=== PATIENT | male | born 1940 | race Caucasian/White ===

== ENCOUNTER 2023-10-20 09:56 | Inpatient (IN) ==
[2023-10-20 10:14] LABS: POC Calcium, Ionized 1.11 (1.16-1.32); POC Creatinine 1.1 (0.6-1.2); POC Potassium 3.9 (3.3-5.1)
[2023-10-20] MEDS ORDERED: ACETAMINOPHEN 325 MG TABLET PO ONE (11:39)
[2023-10-20] MEDS ORDERED: cefTRIAXone 1 GM VIAL IV ONE (11:39)
[2023-10-20 12:25] LABS: Hematocrit 38.6 % (40.1-51.0); Mean Cell Volume 95.3 fL (80.0-100.0); Mean Corpuscular HGB Conc 33.7 g/dL (31.0-36.0); Mean Platelet Volume 10.4 fL (8.8-12.5); Platelet Count 166 K/mcL (140-440); RBC 4.05 M/mcL (4.63-6.08); Red Cell Distribution Width 13.5 % (11.5-14.5); WBC 7.1 K/mcL (4.5-11.0)
[2023-10-20 12:57] LABS: Appearance,Urine CLOUDY (Clear); Bilirubin,Urine Negative (Negative); Color,Urine YELLOW; Culture Indicated,Urine Yes; Glucose,Urine (UA) Negative (Negative); Ketones,Urine Negative (Negative); Leukocyte Esterase,Urine 500 /uL (Negative); Mucus,Urine FEW /hpf; Nitrate,Urine POS (Negative); Protein,Urine 100 mg/dL (Negative); Specific Gravity,Urine 1.015 (1.000-1.035); Urine RBC 49 /hpf (0-3); Urine Squamous Epithelial Cell 0 /hpf (0-4); Urine WBC 177 /hpf (0-4); Urobilinogen,Urine Negative
[2023-10-20 13:00] LABS: Free T4 (Free Thyroxine) 1.28 ng/dL (0.93-1.70)
[2023-10-20 13:13] LABS: ALT/SGPT 21 U/L (<40); AST/SGOT 21 U/L (<40); Albumin 3.9 gm/dL (3.2-5.2); Alkaline Phosphatase 73 U/L (39-117); Bilirubin,Direct < 0.2 mg/dL (0-0.3); Bilirubin,Total 0.5 mg/dL (0.1-1.0); Creatine Kinase 74 U/L (24-195); Globulin 3.5 gm/dL (2.2-3.7); Thyroid Stimulating Hormone 0.79 uIU/mL (0.27-5.01); proBNP 567.3 pg/mL (<450.0)
[2023-10-20 14:37] LABS: Band Neutrophils % 1 % (0-10); Eosinophils % (Manual) 4 % (0-7); Lymphocytes % 11 % (15-49); Monocytes % (Manual) 9 % (1-12); Platelet Estimate NORMAL (Normal); RBC Morphology NORMAL (Normal); Reactive Lymphocytes 1 % (0-2); Segmented Neutrophils % 74 % (38-78)
[2023-10-20] MEDS ORDERED: ONDANSETRON 4 MG/2 ML VIAL IV PRN (15:37)
[2023-10-20] MEDS ORDERED: ACETAMINOPHEN 325 MG TABLET PO PRN (15:37)
[2023-10-20] MEDS ORDERED: DEXTROSE 31 GM ORAL.SUSP PO PRN (15:37)
[2023-10-20] MEDS ORDERED: IPRATROPIUM/ALBUTEROL 3 ML AMPUL.NEB NEB PRN (15:37)
[2023-10-20] MEDS ORDERED: traZODone HCL 50 MG TABLET PO PRN (15:37)
[2023-10-20] MEDS ORDERED: DEXTROSE 50% 50 ML VIAL IV PRN (15:37)
[2023-10-20] MEDS: 0.9 % SODIUM CHLORIDE 1,000 ML IV SCH (16:18)
[2023-10-20] MEDS: INSULIN LISPRO 1 UNIT/0.01 ML UNIT SQ SCH ×2 (17:16→20:52)
[2023-10-20] MEDS: SENNOSIDES 1 TABLET PO SCH (20:51)
[2023-10-20] MEDS: DOCUSATE SODIUM 100 MG CAPSULE PO SCH (20:52)
[2023-10-20] MEDS: INSULIN GLARGINE, HUMAN 1 UNIT/0.01 ML SQ SCH (20:52)
[2023-10-20] MEDS: 0.9 % SODIUM CHLORIDE 10 ML SYRINGE IV SCH (20:54)
[2023-10-20] MEDS: NIRMATRELVIR/RITONAVIR 1 EACH BOX PO SCH (20:57)
[2023-10-20] MEDS ORDERED: CITRIC AC GLUCONOLACT MAG CARB IRRIGATION SCH (21:00)
[2023-10-20] MEDS: CLOTRIMAZOLE CRM 1% 1 DOSE TUBE TOPICAL SCH (21:05)
[2023-10-20] MEDS: busPIRone 15 MG TABLET PO SCH (21:05)
[2023-10-21] MEDS: 0.9 % SODIUM CHLORIDE 1,000 ML IV SCH (02:43)
[2023-10-21] MEDS: 0.9 % SODIUM CHLORIDE 10 ML SYRINGE IV SCH ×3 (04:08→21:35)
[2023-10-21 06:19] LABS: Basophils # (Auto) 0.02 K/mcL (0.00-0.30); Basophils % (Auto) 0.4 % (0.0-2.0); Eosinophils # (Auto) 0 K/mcL (0.00-0.70); Eosinophils % (Auto) 0 % (0.0-7.0); Hematocrit 36.6 % (40.1-51.0); Hemoglobin 11.9 g/dL (13.7-17.5); Lymphocytes # (Auto) 0.78 K/mcL (1.50-4.80); Lymphocytes % (Auto) 15.2 % (15.5-49.0); Mean Cell Volume 97.9 fL (80.0-100.0); Mean Corpuscular HGB Conc 32.5 g/dL (31.0-36.0); Mean Platelet Volume 10.2 fL (8.8-12.5); Monocytes # (Auto) 0.66 K/mcL (0.10-0.90); Monocytes % (Auto) 12.8 % (1.0-12.0); Neutrophils % (Auto) 71.4 % (38.0-78.0); Platelet Count 145 K/mcL (140-440); RBC 3.74 M/mcL (4.63-6.08); Red Cell Distribution Width 13.6 % (11.5-14.5); WBC 5.1 K/mcL (4.5-11.0)
[2023-10-21 06:35] LABS: ALT/SGPT 13 U/L (<40); AST/SGOT 20 U/L (<40); Albumin 3.2 gm/dL (3.2-5.2); Alkaline Phosphatase 59 U/L (39-117); Bilirubin,Total 0.3 mg/dL (0.1-1.0); Blood Urea Nitrogen 24 mg/dL (8-23); Calcium 8.6 mg/dL (8.6-10.4); Carbon Dioxide 21 mmol/L (22-30); Chloride 103 mmol/L (96-108); Globulin 3.1 gm/dL (2.2-3.7); Glomerular Filtration Rate 62; Glucose 147 mg/dL (70-105)
[2023-10-21] MEDS: INSULIN LISPRO 1 UNIT/0.01 ML UNIT SQ SCH ×4 (09:16→21:26)
[2023-10-21] MEDS: DOCUSATE SODIUM 100 MG CAPSULE PO SCH ×2 (09:17→20:59)
[2023-10-21] MEDS: ASPIRIN 81 MG TAB.CHEW PO SCH (09:17)
[2023-10-21] MEDS: busPIRone 15 MG TABLET PO SCH ×2 (09:17→20:59)
[2023-10-21] MEDS: ENOXAPARIN 40 MG/0.4 ML SYRINGE SQ SCH (09:19)
[2023-10-21] MEDS: CLOTRIMAZOLE CRM 1% 1 DOSE TUBE TOPICAL SCH ×2 (09:19→20:59)
[2023-10-21] MEDS: cefTRIAXone 1 GM VIAL IV SCH (09:20)
[2023-10-21] MEDS: NIRMATRELVIR/RITONAVIR 1 EACH BOX PO SCH ×2 (09:45→20:58)
[2023-10-21] MEDS: SENNOSIDES 1 TABLET PO SCH (20:59)
[2023-10-21] MEDS: INSULIN GLARGINE, HUMAN 1 UNIT/0.01 ML SQ SCH (21:26)
[2023-10-22] MEDS: 0.9 % SODIUM CHLORIDE 10 ML SYRINGE IV SCH ×3 (05:49→22:55)
[2023-10-22 06:22] LABS: Basophils # (Auto) 0.01 K/mcL (0.00-0.30); Basophils % (Auto) 0.3 % (0.0-2.0); Eosinophils # (Auto) 0 K/mcL (0.00-0.70); Eosinophils % (Auto) 0 % (0.0-7.0); Hemoglobin 12.4 g/dL (13.7-17.5); Lymphocytes # (Auto) 1.04 K/mcL (1.50-4.80); Lymphocytes % (Auto) 26.2 % (15.5-49.0); Mean Cell Volume 96.4 fL (80.0-100.0); Mean Corpuscular HGB Conc 32.6 g/dL (31.0-36.0); Mean Platelet Volume 9.9 fL (8.8-12.5); Monocytes # (Auto) 0.51 K/mcL (0.10-0.90); Monocytes % (Auto) 12.8 % (1.0-12.0); Neutrophils % (Auto) 60.2 % (38.0-78.0); Platelet Count 143 K/mcL (140-440); RBC 3.94 M/mcL (4.63-6.08); Red Cell Distribution Width 13.6 % (11.5-14.5)
[2023-10-22 06:47] LABS: ALT/SGPT 15 U/L (<40); AST/SGOT 22 U/L (<40); Albumin 3.1 gm/dL (3.2-5.2); Alkaline Phosphatase 57 U/L (39-117); Bilirubin,Total 0.3 mg/dL (0.1-1.0); Blood Urea Nitrogen 26 mg/dL (8-23); Calcium 8.6 mg/dL (8.6-10.4); Carbon Dioxide 21 mmol/L (22-30); Chloride 109 mmol/L (96-108); Globulin 3.1 gm/dL (2.2-3.7); Glomerular Filtration Rate 62; Glucose 178 mg/dL (70-105)
[2023-10-22] MEDS: cefTRIAXone 1 GM VIAL IV SCH (09:35)
[2023-10-22] MEDS: INSULIN LISPRO 1 UNIT/0.01 ML UNIT SQ SCH ×4 (09:35→22:51)
[2023-10-22] MEDS: DOCUSATE SODIUM 100 MG CAPSULE PO SCH ×2 (09:36→22:53)
[2023-10-22] MEDS: ASPIRIN 81 MG TAB.CHEW PO SCH (09:36)
[2023-10-22] MEDS: ENOXAPARIN 40 MG/0.4 ML SYRINGE SQ SCH (09:36)
[2023-10-22] MEDS: CLOTRIMAZOLE CRM 1% 1 DOSE TUBE TOPICAL SCH ×2 (09:37→22:54)
[2023-10-22] MEDS: busPIRone 15 MG TABLET PO SCH ×2 (09:37→22:54)
[2023-10-22] MEDS: NIRMATRELVIR/RITONAVIR 1 EACH BOX PO SCH ×2 (09:44→22:16)
[2023-10-22] MEDS ORDERED: hydrALAZINE 20 MG/ML VIAL IV PRN (13:59)
[2023-10-22] MEDS: LOSARTAN 50 MG TABLET PO SCH (15:18)
[2023-10-22] MEDS: INSULIN GLARGINE, HUMAN 1 UNIT/0.01 ML SQ SCH (22:50)
[2023-10-22] MEDS: SENNOSIDES 1 TABLET PO SCH (22:53)
[2023-10-22] MEDS: amLODIPine 5 MG TABLET PO SCH (22:54)
[2023-10-22] MEDS: METOPROLOL SUCCINATE 50 MG TAB.XL.24H PO SCH (22:54)
[2023-10-22] MEDS: CIPROFLOXACIN 400 MG/200 ML BAG IV SCH (23:16)
[2023-10-23] MEDS: CIPROFLOXACIN 400 MG/200 ML BAG IV SCH ×3 (00:06→22:08)
[2023-10-23 06:14] LABS: Basophils # (Auto) 0.01 K/mcL (0.00-0.30); Basophils % (Auto) 0.2 % (0.0-2.0); Eosinophils # (Auto) 0.01 K/mcL (0.00-0.70); Eosinophils % (Auto) 0.2 % (0.0-7.0); Hematocrit 41.1 % (40.1-51.0); Hemoglobin 13.5 g/dL (13.7-17.5); Lymphocytes # (Auto) 1.47 K/mcL (1.50-4.80); Lymphocytes % (Auto) 36.2 % (15.5-49.0); Mean Cell Volume 96.7 fL (80.0-100.0); Mean Corpuscular HGB Conc 32.8 g/dL (31.0-36.0); Mean Platelet Volume 10.1 fL (8.8-12.5); Monocytes # (Auto) 0.32 K/mcL (0.10-0.90); Monocytes % (Auto) 7.9 % (1.0-12.0); Neutrophils % (Auto) 55.3 % (38.0-78.0); Platelet Count 160 K/mcL (140-440); RBC 4.25 M/mcL (4.63-6.08); Red Cell Distribution Width 13.9 % (11.5-14.5); WBC 4.1 K/mcL (4.5-11.0)
[2023-10-23 06:50] LABS: ALT/SGPT 15 U/L (<40); AST/SGOT 24 U/L (<40); Albumin 3.3 gm/dL (3.2-5.2); Alkaline Phosphatase 60 U/L (39-117); Bilirubin,Direct < 0.2 mg/dL (0-0.3); Bilirubin,Total 0.3 mg/dL (0.1-1.0); Blood Urea Nitrogen 23 mg/dL (8-23); Calcium 8.9 mg/dL (8.6-10.4); Carbon Dioxide 20 mmol/L (22-30); Chloride 107 mmol/L (96-108); Globulin 3.3 gm/dL (2.2-3.7); Glomerular Filtration Rate 62; Glucose 169 mg/dL (70-105); Lactate Dehydrogenase 205 U/L (135-225); Phosphorous 3.4 mg/dL (2.5-4.5); Triglycerides 165 mg/dL (<150); Uric Acid 7.3 mg/dL (2.5-8.0)
[2023-10-23] MEDS: INSULIN LISPRO 1 UNIT/0.01 ML UNIT SQ SCH ×4 (07:47→22:08)
[2023-10-23] MEDS: LOSARTAN 50 MG TABLET PO SCH (08:39)
[2023-10-23] MEDS: ASPIRIN 81 MG TAB.CHEW PO SCH (08:39)
[2023-10-23] MEDS: DOCUSATE SODIUM 100 MG CAPSULE PO SCH ×2 (08:39→22:05)
[2023-10-23] MEDS: ENOXAPARIN 40 MG/0.4 ML SYRINGE SQ SCH (08:39)
[2023-10-23] MEDS: 0.9 % SODIUM CHLORIDE 10 ML SYRINGE IV SCH ×3 (08:39→22:09)
[2023-10-23] MEDS: busPIRone 15 MG TABLET PO SCH ×2 (08:39→22:07)
[2023-10-23] MEDS: CLOTRIMAZOLE CRM 1% 1 DOSE TUBE TOPICAL SCH ×2 (08:40→22:09)
[2023-10-23] MEDS: NIRMATRELVIR/RITONAVIR 1 EACH BOX PO SCH ×2 (08:41→22:08)
[2023-10-23] MEDS: amLODIPine 5 MG TABLET PO SCH (22:06)
[2023-10-23] MEDS: SENNOSIDES 1 TABLET PO SCH (22:06)
[2023-10-23] MEDS: METOPROLOL SUCCINATE 50 MG TAB.XL.24H PO SCH (22:07)
[2023-10-23] MEDS: INSULIN GLARGINE, HUMAN 1 UNIT/0.01 ML SQ SCH (22:08)
[2023-10-24] MEDS: 0.9 % SODIUM CHLORIDE 10 ML SYRINGE IV SCH (07:53)
[2023-10-24] MEDS: INSULIN LISPRO 1 UNIT/0.01 ML UNIT SQ SCH ×2 (08:01→11:58)
[2023-10-24] MEDS: CIPROFLOXACIN 400 MG/200 ML BAG IV SCH (10:39)
[2023-10-24] MEDS: busPIRone 15 MG TABLET PO SCH (10:40)
[2023-10-24] MEDS: DOCUSATE SODIUM 100 MG CAPSULE PO SCH (10:40)
[2023-10-24] MEDS: LOSARTAN 50 MG TABLET PO SCH (10:41)
[2023-10-24] MEDS: ASPIRIN 81 MG TAB.CHEW PO SCH (10:41)
[2023-10-24] MEDS: NIRMATRELVIR/RITONAVIR 1 EACH BOX PO SCH (10:42)
[2023-10-24] MEDS: CLOTRIMAZOLE CRM 1% 1 DOSE TUBE TOPICAL SCH (10:42)
[2023-10-24] MEDS: ENOXAPARIN 40 MG/0.4 ML SYRINGE SQ SCH (10:43)
[2023-10-24 12:15] VITALS: TEMP 97.7; O2SAT 97
== END 2023-10-24 14:06 ==
LOC: ED 09:56 → MEDSUR 15:20
PROVIDERS: ADMIT Internal Medicine; ATTEND Internal Medicine